=== PATIENT | male | born 1965 | race Hispanic/Latino ===

== ENCOUNTER 2019-12-17 13:03 | Emergency (ER) | payer SELFPAY ==
[~2019-12-17] VITALS: Ht 172.7 cm; Wt 90.7 kg
--- NOTE | 2019-12-17 13:10 | NUR ---
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 PT UNDER ARREST.
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
--- NOTE | 2019-12-17 13:58 | Diagnostic Imaging Report ---
EXAMINATION: ANKLE 3 + VIEWS RIGHT INDICATION: Right ankle pain, swelling COMPARISON: None FINDINGS: AP, lateral and oblique radiographs of the right ankle demonstrate no acute fracture or dislocation. Alignment is anatomic. Mild diffuse ankle soft tissue swelling. No substantial ankle joint effusion. Center calcaneal spur. IMPRESSION: Mild right ankle soft tissue swelling without underlying acute osseous injury. Plantar calcaneal spur. Signed by: Tino Grant MD on 12/17/2019 1:54 PM
--- OUTSIDE RECORDS SUMMARY | 2019-12-17 14:05 | XMS REPORT | Clinical Summary ---
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 Last Filed Vital Signs Not on file Plan of Treatment Health Maintenance Due Date Last Done Comments Colorectal Cancer Scrn 2016 Annual (FIT/FOBT) Age 50 to 75 IMM Influenza Seasonal 12/12/2019Dec to May (>/= 19 yrs) Results Not on fileafter 12/16/2018 Insurance Type Payer Benefit Subscriber ID Effective Phone Address Plan / Dates Group [employer] [place] [employer] [place]-P [address] FAMILY resent [id number] PLANNING [place], [place] [address] Guarantor Name Account Relation to Date of Phone Rosetta mota Address Type Patient Catherine Bullock Personal/F Head of [birth year]1975 [address] Household (Home) [place], [place] [address] (Self)
--- OUTSIDE RECORDS SUMMARY | 2019-12-17 14:05 | XMS REPORT | Continuity of Care Document ---
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 Social History Social Habit Start Date Stop Date Quantity Comments Source Sex Assigned At [facility] Smoking Status Start Date Stop Date Source Current Some Day Smoker [facility] Medications This patient has no known medications. Immunizations Ordered Immunization Name Filled Immunization Name Date Status Comments Source Tdap Tdap 2019-01-11 10:31:00 Completed [facility] Vital Signs Vital Name Observation Time Observation Value Comments Source BP Diastolic 2019-01-11 00:00:00 80 mm[Hg] [facility] Height 2019-01-11 00:00:00 66 [in_i] [facility] BMI (Body Mass Index) 2019-01-11 00:00:00 31 kg/m2 [facility] BP Systolic 2019-01-11 00:00:00 140 mm[Hg] [facility] Body Weight 2019-01-11 00:00:00 192 [lb_av] [facility] Procedures This patient has no known procedures. Plan of Care Planned Activity Planned Date Details Comments Source Future Scheduled Test 2019-12-12 00:00:00 IMM Influenza Seas onal Dec to May (>/= 19 yrs) [code = IMM Influenza Seasonal Dec to May (>/= 19 yrs)] [facility] Diagnostic Test Pending 2019-01-11 00:00:00 colon cancer scr eening, stool [code = [facility] 2019-01-11 00:00:00 CBC w/ auto diff [code = CBC w/ auto diff] [facility] Diagnostic Test Pending 2019-01-11 00:00:00 CMP, serum or pl asma [code = CMP, serum or plasma] [facility] Diagnostic Test Pending 2019-01-11 00:00:00 lipid panel, ser um [code = lipid panel, serum] [facility] Diagnostic Test Pending 2019-01-11 00:00:00 TSH, serum or pl asma [code = TSH, serum or plasma] [facility] Diagnostic Test Pending 2019-01-11 00:00:00 PSA, serum or pl asma [code = PSA, serum or plasma] [facility] Future Scheduled Test 2016 00:00:00 Screening for cristi gnant neoplasm of colon (procedure) [code = 609290716] [facility] Encounters Start Date/Time End Date/Time Encounter Type Admission Type [facility] Care Department Encounter ID Source 2019-01-11 00:00:00 2019-01-11 00:00:00 Scottie brown MD: [id number] [place] [address], Ph. [facility] [id number] [facility] Results Test Description Test Time Test Comments Results Result Comments Source ANKLE 3 + VIEWS RIGHT 2019-12-17 13:53:00 [place] [id number] Patient Name: LOUISA REYES MR #: [id number] : 1965 Age/Sex: 54/M Req #: [id number] Adm Physician: Ordered by: João Mahan MD Report #: [id number] Location: ER Room/Bed: Procedure: [id number] DX/ANKLE 3 + VIEWS RIGHT Exam Date: 12/17/19 Exam Time: 1320 REPORT STATUS: Signed EXAMINATION: ANKLE 3 + VIEWS RIGHT INDICATION: Right ankle pain, swelling COMPARISON: None FINDINGS: AP, lateral and oblique radiographs of the right ankle demonstrate no acute fracture or dislocation. Alignment is anatomic. Mild diff use ankle soft tissue swelling. No substantial ankle joint effusion. Center calcaneal spur. IMPRESSION: Mild right ankle soft tissue swelling without underlying acute osseous injury. Plantar calcaneal spur. Signed by: Otilia Goodwin MD on 12/17/2019 1:54 PM Dictated By: OTILIA GOODWIN MD [id number] Transcribed By: JULIA on 12/17/19 1354 COPY TO: JOÃO MAHAN MD
--- NOTE | 2019-12-17 14:19 | NUR ---
shauna wrapped and +pms before and after
== END 2019-12-17 14:20 | disposition home or self-care (01) ==
LOC: ER 14:02
DX: S93.401A Sprain of unspecified ligament of right ankle, initial encounter (principal); W01.0XXA Fall on same level from slipping, tripping and stumbling without subsequent striking against object, initial encounter; Y93.01 Activity, walking, marching and hiking
CPT/HCPCS: 99283